=== PATIENT | female | born 1990 | race Caucasian/White ===

== ENCOUNTER 2016-12-04 09:10 | Inpatient (IN) | payer SELFPAY ==
[~2016-12-04] VITALS: Ht 162.6 cm; Wt 55.1 kg
[2016-12-04 09:56] LABS: ADD MIUA? YES; BILIRUBIN NEGATIVE; BLOOD MODERATE; COLOR STRAW ((YELLOW)); GLUCOSE (STRIP) NEGATIVE; KETONES NEGATIVE; LEUKOCYTES NEGATIVE; NITRITE NEGATIVE; PROTEIN (STRIP) NEGATIVE; SPECIFIC GRAVITY 1.002 (1.000-1.030); UROBILINOGEN 0.2 MG/DL (0.2-1.0)
[2016-12-04 10:02] LABS: BACTERIA NONE SEEN /HPF; EPITHELIAL CELLS RARE /HPF; MUCUS NONE SEEN /LPF; RED BLOOD CELLS NONE SEEN /HPF (0-5); UCUL ADDED? NO; WHITE BLOOD CELLS 0-5 /HPF (0-5)
[2016-12-04 10:05] LABS: AMPHETAMINE NEGATIVE (500 ng/mL); BENZODIAZEPINES NEGATIVE (150 ng/mL); COCAINE NEGATIVE (150 ng/mL); METHAMPHETAMINE NEGATIVE (500 ng/mL); OPIATES (MORPHINE) NEGATIVE (100 ng/mL); PHENCYCLIDINE NEGATIVE (25 ng/mL); THC CANNABINOIDS NEGATIVE (50 ng/mL)
[2016-12-04 10:06] LABS: BARBITURATES NEGATIVE (200 ng/mL); INTERNAL CONTROLS VALID? YES; METHADONE NEGATIVE (200 ng/mL); OXYCODONE NEGATIVE (100 ng/mL); PROPOXYPHENE NEGATIVE (300 ng/mL); TRICYCLIC ANTIDEPRESSANTS NEGATIVE (300 ng/mL)
[2016-12-04 10:34] LABS: HEMATOCRIT 38.8 % (36.0-46.0); MCH 30.1 PG (29.0-34.0); MCHC 34.8 G/DL (30.0-36.0); MCV 86.6 FL (83-99); MEAN PLAT.VOLUME 10.6 uM^3 (9.5-12.4); PLATELET COUNT 366 K/uL (156-360); RBC DIS.WIDTH-SD 40.9 % (39-53); RED BLOOD COUNT 4.48 M/uL (3.80-5.20); WHITE BLOOD COUNT 14.4 K/uL (4.1-10.2)
[2016-12-04 10:43] LABS: CHLORIDE 105 mEq/L (99-109); SODIUM 140 mEq/L (136-147)
[2016-12-04 10:45] LABS: GLUCOSE 101 mg/dL (70-99)
[2016-12-04 10:46] LABS: ANION GAP 14 MEQ/L (2-14)
[2016-12-04 10:48] LABS: SERUM ETHYL ALCOHOL < 10 mg/dL
[2016-12-04 10:49] LABS: GFR ESTIMATE (CALCULATED) > 59 mL/min/
[2016-12-04 10:50] LABS: UREA NITROGEN (BUN) 6 mg/dL (9-23)
[2016-12-04 10:52] LABS: SALICYLATE < 5.0 MG/DL (15-30)
[2016-12-04 10:58] LABS: QUANTITATIVE HCG < 4.0 MIU/ML
[2016-12-04 14:54] VITALS: BP 132/82
[2016-12-04 15:23] VITALS: BP 132/82
[2016-12-05 07:29] VITALS: BP 128/77
[2016-12-05 15:21] VITALS: BP 139/80
[2016-12-06 07:26] VITALS: BP 143/96
[2016-12-06 15:41] VITALS: BP 145/91
[2016-12-07 07:46] VITALS: BP 164/94
[2016-12-07 15:01] VITALS: BP 143/99
[2016-12-08 07:42] VITALS: BP 148/86
[2016-12-08 15:08] VITALS: BP 147/71
[2016-12-09 07:44] VITALS: BP 132/76
[2016-12-09 15:07] VITALS: BP 139/76
[2016-12-10 07:19] VITALS: BP 160/83
[2016-12-10 15:34] VITALS: BP 130/77
[2016-12-11 07:36] VITALS: BP 110/79
[2016-12-11 15:17] VITALS: BP 141/88
[2016-12-12 07:46] VITALS: BP 158/92
[2016-12-12 12:11] VITALS: BP 127/82
[2016-12-12 15:19] VITALS: BP 128/81
[2016-12-13 07:44] VITALS: BP 137/78
[2016-12-13 09:47] LABS: BASOPHIL COUNT 0.1 K/uL (0-0.1); EOSINOPHIL (%) 2.5 % (0-5); EOSINOPHIL COUNT 0.2 K/uL (0-0.3); IMMATURE GRANULOCYTE (%) 0.7 % (0.0-0.7); IMMATURE GRANULOCYTE COUNT 0.1 K/uL; LYMPHOCYTE COUNT 2.1 K/uL (1.0-2.8); MCH 29.9 PG (29.0-34.0); MCHC 32.3 G/DL (30.0-36.0); MONOCYTE (%) 8.9 % (3-12); MONOCYTE COUNT 0.6 K/uL (0-0.8); NEUTROPHIL (%) 56.9 % (45-76); RBC DIS.WIDTH-CV 12.6 % (11.8-14.6); RED BLOOD COUNT 4.65 M/uL (3.80-5.20)
[2016-12-13 09:48] LABS: MEAN PLAT.VOLUME 10.7 uM^3 (9.5-12.4); PLAT.SUFFICIENCY ADEQUATE
[2016-12-13 09:51] LABS: MCV 92.5 FL (83-99); PLATELET COUNT 250 K/uL (156-360); WHITE BLOOD COUNT 7.1 K/uL (4.1-10.2)
[2016-12-13 10:07] LABS: ALKALINE PHOSPHATASE 64 IU/L (3-129); DIRECT BILIRUBIN 0.1 mg/dL (0.0-0.3); TOTAL BILIRUBIN 0.5 MG/DL (0.0-1.0)
[2016-12-13 15:45] VITALS: BP 173/104
[2016-12-14 07:57] VITALS: BP 124/88
[2016-12-14 15:53] VITALS: BP 115/82
[2016-12-15 07:35] VITALS: BP 134/79
[2016-12-15 15:14] VITALS: BP 125/90
[2016-12-16 07:42] VITALS: BP 122/60
[2016-12-16 15:44] VITALS: BP 148/83
[2016-12-17 07:36] VITALS: BP 136/86
[2016-12-17 14:57] VITALS: BP 134/80
[2016-12-18 07:22] VITALS: BP 117/68
[2016-12-18 15:28] VITALS: BP 118/78
[2016-12-19 07:34] VITALS: BP 112/70
[2016-12-19 15:41] VITALS: BP 108/67
[2016-12-19 20:17] VITALS: BP 142/85
[2016-12-20 07:25] VITALS: BP 118/83
[2016-12-20 15:27] VITALS: BP 121/64
[2016-12-21 07:38] VITALS: BP 112/63
[2016-12-21] MEDS ORDERED: RISPERDAL2 MG PO (09:30)
[2016-12-21] MEDS ORDERED: DIVALPROEX SOD500 MG PO (09:30)
== END 2016-12-21 11:09 | disposition home or self-care (01) | DRG 885 ==
LOC: EME 09:10 → EDOF 12:29 → 1WEST 12:29
PROVIDERS: Emergency Medicine; Psychiatry & Neurology Psychiatry
DX: F31.2 Bipolar disorder, current episode manic severe with psychotic features (principal); F41.9 Anxiety disorder, unspecified; F12.10 Cannabis abuse, uncomplicated; E87.6 Hypokalemia; J45.909 Unspecified asthma, uncomplicated; Z91.14 Patient's other noncompliance with medication regimen; Z87.891 Personal history of nicotine dependence; Z91.5 Personal history of self-harm; Z81.8 Family history of other mental and behavioral disorders; Z59.0 Homelessness
CPT/HCPCS: 80048; 80076; 80164; 81003; 84132 91; 84702; 85025; 85027; 90839; 93005; 97150 GO; 97166 GO; 99281; 99285; G0480; J1630